=== PATIENT | female | born 1945 | race Caucasian/White ===

== ENCOUNTER 2016-06-15 16:56 | Emergency (ER) | payer MEDICARE ==
[2016-06-15 17:16] VITALS: RESP 18
[2016-06-15] MEDS ORDERED: ceFAZolin 1,000 MG VIAL IM STA (17:33)
[2016-06-15] MEDS ORDERED: DIPH,PERTUS(ACELL)TETVAC-LF 0.5 ML VIAL IM ONE (17:33)
--- NOTE | 2016-06-15 18:00 | XR ---
EXAMINATION TYPE: XR finger LT DATE OF EXAM: 06/15/2016 5:51 PM COMPARISON: NONE HISTORY: Trauma. Bit by dog. TECHNIQUE: 3 views FINDINGS: There is amputation deformity of the midshaft of the distal phalanx of the ring finger left hand. There is no dislocation. IMPRESSION: Amputation deformity of the ring finger at the level of mid shaft of the distal phalanx.
--- NOTE | 2016-06-15 19:03 | ED ---
General Adult HPI - General Chief complaint: Extremity Injury, Upper Stated complaint: Dog Bite Time Seen by Provider: 06/15/16 17:21 Source: patient, RN notes reviewed Mode of arrival: ambulatory Limitations: no limitations - History of Present Illness Initial comments: Patient is a 71-year-old female who presents emergency room today with chief complaint of an injury to the left ring finger. Patient does admit that she accidentally backed over her dog. She states she was trapped underneath the car. She states she is trying to get them out when he did this not better catching her left ring finger causing amputation. Patient states unsure of her tetanus status. She denies any other complaints here in the emergency room. Patient denies any recent fever, chills, shortness of breath, chest pain, back pain, abdominal pain, nausea or vomiting, numbness or tingling, dysuria or hematuria, constipation or diarrhea, headaches or visual changes, or any other complaints. - Related Data Home Medications Medication Instructions Recorded Confirmed Montelukast [Singulair] 10 mg PO HS 09/27/13 06/15/16 Aspirin 81 mg PO DAILY 09/28/13 06/15/16 Cetirizine HCl [Zyrtec] 10 mg PO DAILY 09/28/13 06/15/16 Fluticasone/Salmeterol [Advair 1 puff INHALATION RT-BID 09/28/13 06/15/16 500-50 Diskus] Albuterol Inhaler [Ventolin Hfa 1 - 2 puff INHALATION RT-Q6H PRN 06/15/16 Inhaler] Calcium Carbonate [Tums] 500 mg PO TID PRN 06/15/16 06/15/16 Calcium/Magnesium/Zinc 1 tab PO DAILY 06/15/16 06/15/16 [Hkoxnvx-Rtfxctfrc-Guoh Tablet] Cholecalciferol [Vitamin D3] 1,000 unit PO DAILY 06/15/16 06/15/16 Vit C/E/Zn/Coppr/Lutein/Zeaxan 1 tab PO BID 06/15/16 06/15/16 [Preservision Areds 2 Softgel] Previous Rx's Medication Instructions Recorded Amoxicillin/Potassium Clav 1 each PO Q12HR #20 tab 06/15/16 [Augmentin 875-125 Tablet] Allergies Allergy/AdvReac Type Severity Reaction Status Date / Time ciprofloxacin [From Cipro] AdvReac Nausea Verified 06/15/16 18:42 ciprofloxacin HCl AdvReac Nausea Verified 06/15/16 18:42 [From Cipro] Review of Systems ROS Statement: Those systems with pertinent positive or pertinent negative responses have been documented in the HPI. ROS Other: All systems not noted in ROS Statement are negative. Past Medical History Past Medical History: Asthma, Cancer Additional Past Medical History / Comment(s): hx rt breast cancer History of Any Multi-Drug Resistant Organisms: None Reported Past Surgical History: Breast Surgery Additional Past Surgical History / Comment(s): Rt mastectomy. colonoscopy Past Anesthesia/Blood Transfusion Reactions: Previous Problems w/ Anesthesia Additional Past Anesthesia/Blood Transfusion Reaction / Comment(s): orthostatic HTN after last colonoscopy Past Psychological History: No Psychological Hx Reported Smoking Status: Never smoker Past Alcohol Use History: Rare Past Drug Use History: None Reported General Exam - General Exam Comments Initial Comments: General: The patient is awake and alert, in no distress, and does not appear acutely ill. Neck: The neck is supple, there is no tenderness or JVD. Cardiovascular: There is a regular rate and rhythm. No murmur, rub or gallop is appreciated. Respiratory: Lungs are clear to auscultation, respirations are non-labored, breath sounds are equal. No wheezes, stridor, rales, or rhonchi. Musculoskeletal: Patient does have distal tip amputation of the left ring finger. No active bleeding. Sensation is intact pulses equal bilaterally 2+. Full range of motion. Strength 5/5. Neurological: A&O x 3. CN II-XII intact, There are no obvious motor or sensory deficits. Coordination appears grossly intact. Speech is normal. Skin: Skin is warm and dry and no rashes or lesions are noted. Psychiatric: Normal mood and affect. Limitations: no limitations Course Vital Signs 06/15/16 17:11 Temperature 98.0 F Pulse Rate 89 Respiratory 18 Rate Blood Pressure 155/86 O2 Sat by Pulse 98 Oximetry Procedures - Procedures Initial comment: Patient's left ring finger was anesthetized locally at the head of the metacarpals with 1% lidocaine. Area was heavily irrigated under pressure with normal saline. Nonstick sterile dressing placed over top with tube gauze. Medical Decision Making - Medical Decision Making X-ray reviewed and does show distal tip amputation of the midshaft of the distal phalanx of the fourth digit of the left hand. Case was discussed and seen by attending physician who saw patient at bedside and discussed up with orthopedics correspondence dictator Dr. Mccord who recommends irrigation with a nonstick dressing and following up in the office tomorrow morning. Patient was heavily irrigated here in emergency room. Did have tetanus updated and shot of antibiotics will be discharged home on Augmentin. Disposition Clinical Impression: Fingertip amputation Disposition: HOME SELF-CARE Condition: Good Instructions: Finger Amputation (ED) Additional Instructions: Please follow-up with orthopedics tomorrow morning as discussed. Please use antibiotics as prescribed. Prescriptions: Amoxicillin/Potassium Clav [Augmentin 875-125 Tablet] 1 each PO Q12HR #20 tab Referrals: Silvia Dennis MD [Primary Care Provider] - 1-2 days Mayur Mccord MD [STAFF PHYSICIAN] - 1-2 days Time of Disposition: 19:02
[2016-06-15 19:16] VITALS: BP 151/85; PULSE 78; TEMP 98.1
== END 2016-06-15 19:13 | disposition home or self-care (01) ==
LOC: EC 16:56
DX: S68.125A Partial traumatic metacarpophalangeal amputation of left ring finger, initial encounter (principal); W54.0XXA Bitten by dog, initial encounter; J45.909 Unspecified asthma, uncomplicated; Z90.11 Acquired absence of right breast and nipple; Z85.3 Personal history of malignant neoplasm of breast; Z79.82 Long term (current) use of aspirin; Z79.51 Long term (current) use of inhaled steroids; Z79.899 Other long term (current) drug therapy; Z23 Encounter for immunization; Z88.1 Allergy status to other antibiotic agents
CPT/HCPCS: 90471; 99284; 73140; 90715; 96372; J0690

== ENCOUNTER → 2018-03-03 | Outpatient (CLI) | payer MEDICARE ==
--- NOTE | 2018-03-04 08:10 | MM ---
Reason for exam: additional evaluation requested from prior study. Last mammogram was performed 1 year ago. History: Patient is postmenopausal, has history of breast cancer at age 57, has history of high-risk lesion on a previous biopsy at age 53, and is nulliparous. Family history of premenopausal breast cancer in mother and breast cancer in maternal aunt. Retro-pectoral silicone gel implant in the right breast, November 2003. Reduction of the left breast, November 2003. Mastectomy of the right breast, 2002. Benign stereotactic core biopsy of the left breast, May 27, 2001. Benign excisional biopsy of the right breast, April 12, 1997. Core biopsy of the left breast. Lumpectomy of the right breast. Chemotherapy. Took tamoxifen for 5 years beginning at age 57. Physical Findings: Nurse did not find any significant physical abnormalities on exam. MG 3D Diag Mammo W/Cad LT CC and MLO view(s) were taken of the left breast. Prior study comparison: March 08, 2017, left breast MG 3d diag mammo w/cad LT. March 04, 2016, left breast MG 3d diag mammo w/cad LT. The breast tissue is heterogeneously dense. This may lower the sensitivity of mammography. Asymmetric density far medial and posterior is more defined, but disperses on additional views. Precautionary 6 month follow up recommended. These results were verbally communicated with the patient and result sheet given to the patient on 03/03/18. ASSESSMENT: Probably benign, BI-RAD 3 RECOMMENDATION: Follow-up diagnostic mammogram of the left breast in 6 months.
== END | disposition home or self-care (01) ==
LOC: RADMAMWWP 13:34
PROVIDERS: ATTEND Obstetrics & Gynecology
DX: Z08 Encounter for follow-up examination after completed treatment for malignant neoplasm (principal); Z85.3 Personal history of malignant neoplasm of breast
CPT/HCPCS: 77065; G0279; 77061

== ENCOUNTER → 2018-09-02 | Outpatient (CLI) | payer MEDICARE ==
--- NOTE | 2018-09-02 14:22 | MM ---
Reason for exam: follow-up at short interval from prior study. Last mammogram was performed 6 months ago. History: Patient is postmenopausal, has history of breast cancer at age 57, has history of high-risk lesion on a previous biopsy at age 53, and is nulliparous. Family history of premenopausal breast cancer in mother and breast cancer in maternal aunt. Retro-pectoral silicone gel implant in the right breast, November 2003. Reduction of the left breast, November 2003. Mastectomy of the right breast, 2002. Benign stereotactic core biopsy of the left breast, May 27, 2001. Benign excisional biopsy of the right breast, April 12, 1997. Core biopsy of the left breast. Lumpectomy of the right breast. Chemotherapy. Took tamoxifen for 5 years beginning at age 57. Physical Findings: Nurse did not find any significant physical abnormalities on exam. MG 3D Diag Mammo W/Cad LT CC and MLO view(s) were taken of the left breast. Prior study comparison: March 03, 2018, left breast MG 3d diag mammo w/cad LT. March 08, 2017, left breast MG 3d diag mammo w/cad LT. The breast tissue is heterogeneously dense. This may lower the sensitivity of mammography. Benign appearing calcifications in the left breast. No suspicious abnormality. These results were verbally communicated with the patient and result sheet given to the patient on 09/02/18. ASSESSMENT: Benign, BI-RAD 2 RECOMMENDATION: Follow-up diagnostic mammogram of the left breast in 6 months. Back on schedule for February 2019. (annual, patient typically has screening)
--- NOTE | 2018-09-02 15:37 | BD ---
EXAMINATION TYPE: Axial Bone Density DATE OF EXAM: 09/02/2018 COMPARISON: 03.04.2016 CLINICAL HISTORY: 73 YR OLD FEMALE.....ICD-10 CODE: M89.9 DISORDER OF BONE, M85.9 OSTEOPOROSIS Height: 62.2 Weight: 108 FRAX RISK QUESTIONS: Family History (Parent hip fracture): YES Glucocorticoids (More than 3mos): YES (Ex: prednisone, prednisolone, methylprednisolone, dexamethasone, and hydrocortisone). RISK FACTORS HISTORY OF: Family History of Osteoporosis: YES, PATERNAL SIDE, WITH BROKEN HIPS Postmenopausal woman: YES, AT 52 YRS OLD MEDICATIONS: Prednisone or other steroids: ADVAIR, AND SINGULAIR DAILY, ALBUTEROL INHALER Osteoporosis Medications: IN PAST ONLY...NONE NOW Additional Medications: HX OF CHEMO, REFLUX MEDS , VIT D AND CALCIUM, Additional History: HYPERCALCEMIA, RT BREAST CANCER, EXAM MEASUREMENTS: Bone mineral densitometry was performed using the [employer] System. Bone mineral density as measured about the Lumbar spine is: ----- L1-L4(G/cm2): 1.270 T Score Values are as follows: ----- L1: 0.7 ----- L2: 0.2 ----- L3: 1.0 ----- L4: 0.9 ----- L1-L4: 0.8 Bone mineral density has: Decreased -0.3% since study of: 03.04.2016 Bone mineral density about the R hip (g/cm2): 0.886 Bone mineral density about the L hip (g/cm2): 0.851 T Score values are as follows: -----R Neck: -1.4 -----L Neck: -1.6 -----R Total: -1.0 -----L Total: -1.2 Bone mineral density has: Decreased -2.0% since study of: 03.04.2016 FRAX%s: THERE IS A 22.3% CHANCE FOR A MAJOR OSTEOPOROTIC FX AND A 7.5% FOR HIP....PROBABILITY FOR FX IN 10 YRS TIME IMPRESSION: Osteopenia (T Score between -2.5 and -1). There is slightly increased risk of fracture and the patient may be considered for treatment. Re-Screen 2-5 years. NOTE: T-SCORE=SD OF THE YOUNG ADULT MEAN.
== END | disposition home or self-care (01) ==
LOC: RADMAMWWP 12:51
PROVIDERS: ATTEND Obstetrics & Gynecology
DX: Z08 Encounter for follow-up examination after completed treatment for malignant neoplasm (principal); M89.9 Disorder of bone, unspecified; M85.80 Other specified disorders of bone density and structure, unspecified site; Z85.3 Personal history of malignant neoplasm of breast; Z98.82 Breast implant status
CPT/HCPCS: 77080; 77065; G0279; 77061

== ENCOUNTER → 2019-03-13 | Outpatient (CLI) | payer MEDICARE ==
--- NOTE | 2019-03-13 11:52 | MM ---
Reason for exam: follow-up at short interval from prior study. Last mammogram was performed 6 months ago. History: Patient is postmenopausal, has history of breast cancer at age 57, has history of high-risk lesion on a previous biopsy at age 53, and is nulliparous. Family history of premenopausal breast cancer in mother and breast cancer in maternal aunt. Retro-pectoral silicone gel implant in the right breast, November 2003. Reduction of the left breast, November 2003. Mastectomy of the right breast, 2002. Benign stereotactic core biopsy of the left breast, May 27, 2001. Benign excisional biopsy of the right breast, April 12, 1997. Core biopsy of the left breast. Lumpectomy of the right breast. Chemotherapy. Took tamoxifen for 5 years beginning at age 57. Physical Findings: Nurse Summary: BB's placed at 3 o'clock and 6 o'clock in the right breast (nurse ms). MG 3D Diag Mammo W/Cad LT CC, MLO, XCCL, and ML view(s) were taken of the left breast. Prior study comparison: September 02, 2018, left breast MG 3d diag mammo w/cad LT. March 03, 2018, left breast MG 3d diag mammo w/cad LT. The breast tissue is heterogeneously dense. This may lower the sensitivity of mammography. Benign appearing calcifications in the left breast. Upper inner quadrant 1.1cm posterior mass. Ultrasound will be performed. These results were verbally communicated with the patient and result sheet given to the patient on 03/13/19. ASSESSMENT: Incomplete: need additional imaging evaluation, BI-RAD 0 RECOMMENDATION: Ultrasound of the left breast. superior palpable and mass
--- NOTE | 2019-03-13 11:53 | USB ---
Reason for exam: additional evaluation requested from abnormal screening. History: Patient is postmenopausal, has history of breast cancer at age 57, has history of high-risk lesion on a previous biopsy at age 53, and is nulliparous. Family history of premenopausal breast cancer in mother and breast cancer in maternal aunt. Retro-pectoral silicone gel implant in the right breast, November 2003. Reduction of the left breast, November 2003. Mastectomy of the right breast, 2002. Benign stereotactic core biopsy of the left breast, May 27, 2001. Benign excisional biopsy of the right breast, April 12, 1997. Core biopsy of the left breast. Lumpectomy of the right breast. Chemotherapy. Took tamoxifen for 5 years beginning at age 57. US Breast Limited LT Left limited breast ultrasound including focal area of concern, retroareolar and axilla demonstrates a 9 x 5 x 12mm oval, cystic lesion at 9 o'clock, correlates with mammogram. These results were verbally communicated with the patient and result sheet given to the patient on 03/13/19. ASSESSMENT: Benign, BI-RAD 2 RECOMMENDATION: Routine screening mammogram of the left breast in 1 year.
== END | disposition home or self-care (01) ==
LOC: RADMAMWWP 10:06
PROVIDERS: ATTEND Obstetrics & Gynecology
DX: R92.8 Other abnormal and inconclusive findings on diagnostic imaging of breast (principal); Z85.3 Personal history of malignant neoplasm of breast
CPT/HCPCS: 77065; 76642; G0279; 77061

== ENCOUNTER → 2020-04-26 | Outpatient (CLI) | payer MEDICARE ==
--- NOTE | 2020-04-26 14:02 | MM ---
Reason for exam: additional evaluation requested from prior study. Last mammogram was performed 1 year and 1 month ago. History: Patient is postmenopausal, has history of breast cancer at age 57, has history of high-risk lesion on a previous biopsy at age 53, and is nulliparous. Family history of premenopausal breast cancer in mother and breast cancer in maternal aunt. Retro-pectoral silicone gel implant in the right breast, November 2003. Reduction of the left breast, November 2003. Mastectomy of the right breast, 2002. Benign stereotactic core biopsy of the left breast, May 27, 2001. Benign excisional biopsy of the right breast, April 12, 1997. Core biopsy of the left breast. Lumpectomy of the right breast. Chemotherapy. Took tamoxifen for 5 years beginning at age 57. Physical Findings: Nurse did not find any significant physical abnormalities on exam. MG 3D Diag Mammo W/Cad LT CC and MLO view(s) were taken of the left breast. Prior study comparison: March 13, 2019, left breast MG 3d diag mammo w/cad LT. September 02, 2018, left breast MG 3d diag mammo w/cad LT. The breast tissue is heterogeneously dense. This may lower the sensitivity of mammography. Benign calcifications. There is chronic nodularity bilaterally. No significant new findings when compared with previous films. These results were verbally communicated with the patient and result sheet given to the patient on 04/26/20. ASSESSMENT: Benign, BI-RAD 2 RECOMMENDATION: Follow-up diagnostic mammogram of the left breast in 1 year.
== END | disposition home or self-care (01) ==
LOC: RADMAMWWP 12:27
PROVIDERS: ATTEND Internal Medicine Hematology & Oncology
DX: Z08 Encounter for follow-up examination after completed treatment for malignant neoplasm (principal); Z85.3 Personal history of malignant neoplasm of breast
CPT/HCPCS: 77065; G0279; 77061

== ENCOUNTER 2021-02-25 10:19 | Day surgery (SDC) | payer MEDICARE ==
[2021-02-18 15:50] VITALS: BMI 19.5
[~2021-02-25 10:19] MED LIST: LACTATED RINGERS 1,000 ML IV SCH
[2021-02-25 10:37] VITALS: TEMP 98.3
[2021-02-25] MEDS ORDERED: LIDOCAINE 1% (10MG/ML) FOR IV START INTRADERMA ONE (10:50)
[2021-02-25] MEDS ORDERED: PROPOFOL 10 MG/ML 20 ML VIAL IV ONE (11:37)
--- NOTE | 2021-02-25 11:49 | P.GSHP ---
History of Present Illness H&P Date: 02/25/21 Chief Complaint: Colon cancer screening Patient here today for colonoscopy. Last colonoscopy years ago. Patient states she thinks she had a polyp with her first colonoscopy many years ago. No family history of colon cancer. No bowel complaints. 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, Past Anesthesia/Blood Transfusion Reactions: Previous Problems w/ Anesthesia Additional Past Anesthesia/Blood Transfusion Reaction / Comment(s): orthostatic HTN after last colonoscopy.lightheaded and low blood sugar Smoking Status: Never smoker - Past Family History Mother Family Medical History: Cancer Brother(s) Family Medical History: Cancer Medications and Allergies Home Medications Medication Instructions Recorded Confirmed Type Montelukast [Singulair] 10 mg PO QAM 09/27/13 02/18/21 History Cetirizine HCl [Zyrtec] 10 mg PO HS 09/28/13 02/18/21 History Fluticasone/Salmeterol [Advair 1 puff INHALATION RT-BID 09/28/13 02/18/21 History 500-50 Diskus] Albuterol Inhaler (Mhu) [Ventolin 1 - 2 puff INHALATION RT-Q6H PRN 06/15/16 02/18/21 History Hfa Inhaler] Cholecalciferol [Vitamin D3] 5,000 unit PO DAILY 06/15/16 02/18/21 History Vit C/E/Zn/Coppr/Lutein/Zeaxan 1 tab PO BID 06/15/16 02/18/21 History [Preservision Areds 2 Softgel] Multivitamins, Thera [Multivitamin 1 tab PO DAILY 02/18/21 02/18/21 History (formulary)] Allergies Allergy/AdvReac Type Severity Reaction Status Date / Time ciprofloxacin [From Cipro] AdvReac Nausea Verified 02/25/21 10:44 ciprofloxacin HCl AdvReac Nausea Verified 02/25/21 10:44 [From Cipro] Surgical - Exam Vital Signs Temp Pulse Resp BP Pulse Ox 98.3 F 87 16 152/87 99 02/25/21 10:36 02/25/21 10:36 02/25/21 10:36 02/25/21 10:36 02/25/21 10:36 Physical exam: General: Well-developed, well-nourished HEENT: Normocephalic, sclerae nonicteric Abdomen: Nontender, nondistended Extremities: No edema Neuro: Alert and oriented Assessment and Plan (1) Colon cancer screening Narrative/Plan: Will proceed with colonoscopy at this time Current Visit: Yes Status: Acute Code(s): Z12.11 - ENCOUNTER FOR SCREENING FOR MALIGNANT NEOPLASM OF COLON SNOMED Code(s): 695226108
--- NOTE | 2021-02-25 12:05 | P.PCN ---
Date of Procedure: 02/25/21 Procedure(s) Performed: PREOPERATIVE DIAGNOSIS: Colon cancer screening POSTOPERATIVE DIAGNOSIS: Cecal polyp, mild diverticulosis PROCEDURE: Colonoscopy with snare polypectomy ANESTHESIA: MAC SURGEON: Ephraim Yang M.D. SPECIMENS: Cecal polyp ENDOSCOPIC PROCEDURE: The patient was placed on the endoscopy table in the left decubitus position. The Olympus colonoscope was inserted into the anus and passed under direct visualization to the base of the cecum. The appendiceal orifice was visualized. From that point the scope was slowly withdrawn inspecting all surfaces carefully. The patient had a small polyp at the cecum. This was removed using the snare with cautery technique. The remainder of the ascending transverse descending sigmoid and rectum appeared normal. There was mild scattered diverticulosis. Digital rectal examination was normal. The patient was taken to the recovery room in stable condition per anesthesia guidelines. RECOMMENDATIONS: Await biopsy results. Anticipate follow-up colonoscopy 5 years.
[2021-02-25 12:37] VITALS: BP 162/95; PULSE 75; RESP 15
== END 2021-02-25 12:40 | disposition home or self-care (01) ==
LOC: ORWHC2ENDO 10:19
PROVIDERS: ATTEND Surgery
DX: Z12.11 Encounter for screening for malignant neoplasm of colon (principal); K63.5 Polyp of colon; K57.90 Diverticulosis of intestine, part unspecified, without perforation or abscess without bleeding
CPT/HCPCS: 45385; J2704; 88305

== ENCOUNTER 2021-12-17 08:05 | Emergency (ER) | payer MEDICARE ==
[2021-12-17] MEDS ORDERED: SODIUM CHLORIDE 0.9% 1,000 ML IV STA ×2 (08:19)
[2021-12-17] MEDS ORDERED: MECLIZINE 12.5 MG TAB PO STA (08:19)
--- NOTE | 2021-12-17 08:28 | ED ---
Dizziness HPI - General Chief Complaint: Dizziness Stated Complaint: dizziness Time Seen by Provider: 12/17/21 08:05 Source: patient, EMS, RN notes reviewed Mode of arrival: EMS Limitations: no limitations - History of Present Illness Initial Comments: 76-year-old female history of breast cancer status post mastectomy also history of vertigo who states she had the onset several days ago some difficulty with hearing also complained of profound dizziness she's had multiple episodes intermittently dizziness. It comes in waves lasting 20 minutes or so. Some nausea she was brought in by EMS was given IV as well as some Zofran. Still somewhat nauseated. She does get dizzy with head movement. No focal weakness no difficulty with vision she does state her hearing has improved since it started to 3 days ago. She's never had hearing problems with dizziness before. MD Complaint: dizziness - Related Data Home Medications Medication Instructions Recorded Confirmed Montelukast [Singulair] 10 mg PO DAILY 09/27/13 12/17/21 Cetirizine HCl [Zyrtec] 10 mg PO HS 09/28/13 12/17/21 Vit C/E/Zn/Coppr/Lutein/Zeaxan 1 tab PO BID 06/15/16 12/17/21 [Preservision Areds 2 Softgel] Azithromycin [Zithromax Z Pack] See Taper PO DIRECTED 12/17/21 12/17/21 Cholecalciferol [Vitamin D3 (125 125 mcg PO DAILY 12/17/21 12/17/21 Mcg = 5000 Iu)] Fluticasone Propion/Salmeterol 1 puff INHALATION RT-BID 12/17/21 12/17/21 [Wixela 500-50 Inhub] Latanoprost/Pf [Latanoprost 0.005% 1 drop BOTH EYES HS 12/17/21 12/17/21 Eye Drop] Multivit-Min/FA/Lycopen/Lutein 1 tab PO DAILY 12/17/21 12/17/21 [Centrum Silver Tablet] Previous Rx's Medication Instructions Recorded Meclizine [Antivert] 25 mg PO TID #20 tab 12/17/21 Allergies Allergy/AdvReac Type Severity Reaction Status Date / Time ciprofloxacin [From Cipro] AdvReac Nausea Verified 12/17/21 11:25 ciprofloxacin HCl AdvReac Nausea Verified 12/17/21 11:25 [From Cipro] Review of Systems ROS Statement: Those systems with pertinent positive or pertinent negative responses have been documented in the HPI. ROS Other: All systems not noted in ROS Statement are negative. Past Medical History Past Medical History: Asthma, Cancer Additional Past Medical History / Comment(s): hx rt breast cancer History of Any Multi-Drug Resistant Organisms: None Reported Past Surgical History: Breast Surgery Additional Past Surgical History / Comment(s): Rt mastectomy. colonoscopy Past Anesthesia/Blood Transfusion Reactions: Previous Problems w/ Anesthesia Additional Past Anesthesia/Blood Transfusion Reaction / Comment(s): orthostatic HTN after last colonoscopy Past Psychological History: No Psychological Hx Reported Past Alcohol Use History: Rare General Exam - General Exam Comments Initial Comments: This is a well-developed well-nourished awake alert oriented 4 female Limitations: no limitations General appearance: anxious Head exam: Present: atraumatic, normocephalic, normal inspection Eye exam: Present: normal appearance, PERRL, EOMI. Absent: scleral icterus, con junctival injection, periorbital swelling ENT exam: Present: mucous membranes dry Neck exam: Present: normal inspection, full ROM, other (No stridor JVD or bruits) Respiratory exam: Present: normal lung sounds bilaterally. Absent: respiratory distress, wheezes, rales, rhonchi, stridor Cardiovascular Exam: Present: regular rate, normal rhythm, normal heart sounds. Absent: systolic murmur, diastolic murmur, rubs, gallop, clicks GI/Abdominal exam: Present: soft. Absent: tenderness, bruit, pulsatile mass Extremities exam: Present: normal inspection, full ROM, normal capillary refill. Absent: tenderness, pedal edema, joint swelling, calf tenderness Back exam: Present: normal inspection Neurological exam: Present: alert, oriented X3, CN II-XII intact Psychiatric exam: Present: normal affect, normal mood Skin exam: Present: warm, dry, intact, normal color. Absent: rash Course Vital Signs 12/17/21 12/17/21 12/17/21 08:06 08:53 09:30 Temperature 97.5 F L Pulse Rate 62 63 Respiratory 16 16 Rate Blood Pressure 154/90 163/93 O2 Sat by Pulse 98 97 Oximetry 12/17/21 10:19 Temperature Pulse Rate 66 Respiratory 16 Rate Blood Pressure 137/83 O2 Sat by Pulse 99 Oximetry EKG Findings - EKG Results: EKG: interpreted by CHARLEY, sinus rhythm (Sinus bradycardia rate 59 ID interval 17 3 QRS duration 110 QT since QTC 422/421 possible left atrial enlargement pulmonary disease pattern incomplete right bundle-branch block left anterior fascicular block noted nonspecific ST configuration) Medical Decision Making - Medical Decision Making Patient is feeling much improved we did discuss the findings the initial blood work was erroneous repeat showed no acute changes patient is clinically somewhat dehydrated. Her vertigo/dizziness has resolved. Patient does states she is currently being treated for a sinus infection she is starting Zithromax today. We discharged home on the current medication at the addition to Antivert. She also was encouraged to increase oral fluids. - Lab Data Result diagrams: 12/17/21 10:07 12/17/21 10:07 Lab Results 12/17/21 12/17/21 12/17/21 Range/Units 08:17 08:17 08:17 WBC (3.8-10.6) k/uL RBC (3.80-5.40) m/uL Hgb (11.4-16.0) gm/dL Hct (34.0-46.0) % MCV (80.0-100.0) fL MCH (25.0-35.0) pg MCHC (31.0-37.0) g/dL RDW (11.5-15.5) % Plt Count (150-450) k/uL MPV Neutrophils % % Lymphocytes % % Monocytes % % Eosinophils % % Basophils % % Neutrophils # (1.3-7.7) k/uL Lymphocytes # (1.0-4.8) k/uL Monocytes # (0-1.0) k/uL Eosinophils # (0-0.7) k/uL Basophils # [employer] Sodium (137-145) mmol/L Potassium (3.5-5.1) mmol/L Chloride (98-107) mmol/L Carbon Dioxide (22-30) mmol/L Anion Gap mmol/L BUN (7-17) mg/dL Creatinine (0.52-1.04) mg/dL Est GFR (CKD-EPI)AfAm >90 (>60 ml/min/1.73 sqM) Est GFR (CKD-EPI)NonAf >90 (>60 ml/min/1.73 sqM) Glucose (74-99) mg/dL Calcium (8.4-10.2) mg/dL Magnesium (1.6-2.3) mg/dL Total Bilirubin (0.2-1.3) mg/dL AST (14-36) U/L ALT (4-34) U/L Alkaline Phosphatase (38-126) U/L Creatine Kinase 164 H (30-135) U/L Troponin I (0.000-0.034) ng/mL Total Protein (6.3-8.2) g/dL Albumin (3.5-5.0) g/dL TSH 1.880 (0.465-4.680) mIU/L Urine Color Colorless Urine Appearance Cloudy H (Clear) Urine pH 7.5 (5.0-8.0) Ur Specific [place] 1.010 (1.001-1.035) Urine Protein Negative (Negative) Urine Glucose (UA) 1+ H (Negative) Urine Ketones Negative (Negative) Urine Blood Negative (Negative) Urine Nitrite Negative (Negative) Urine Bilirubin Negative (Negative) Urine Urobilinogen <2.0 (<2.0) mg/dL Ur Leukocyte Esterase Negative (Negative) Urine RBC 1 (0-5) /hpf Urine WBC 1 (0-5) /hpf Amorphous Sediment Moderate H (None) /hpf Urine Mucus Rare H (None) /hpf Stool Occult Blood (Negative) Coronavirus (PCR) (Not Detectd) Blood Type Blood Type Confirm Blood Type Recheck Bld Type Recheck Status Antibody Screen Spec Expiration Date 12/17/21 12/17/21 12/17/21 Range/Units 08:17 08:17 08:17 WBC (3.8-10.6) k/uL RBC (3.80-5.40) m/uL Hgb (11.4-16.0) gm/dL Hct (34.0-46.0) % MCV (80.0-100.0) fL MCH (25.0-35.0) pg MCHC (31.0-37.0) g/dL RDW (11.5-15.5) % Plt Count (150-450) k/uL MPV Neutrophils % % Lymphocytes % % Monocytes % % Eosinophils % % Basophils % % Neutrophils # (1.3-7.7) k/uL Lymphocytes # (1.0-4.8) k/uL Monocytes # (0-1.0) k/uL Eosinophils # (0-0.7) k/uL Basophils # Sodium (137-145) mmol/L Potassium (3.5-5.1) mmol/L Chloride (98-107) mmol/L Carbon Dioxide (22-30) mmol/L Anion Gap mmol/L BUN (7-17) mg/dL Creatinine (0.52-1.04) mg/dL Est GFR (CKD-EPI)AfAm (>60 ml/min/1.73 sqM) Est GFR (CKD-EPI)NonAf (>60 ml/min/1.73 sqM) Glucose (74-99) mg/dL Calcium (8.4-10.2) mg/dL Magnesium (1.6-2.3) mg/dL Total Bilirubin (0.2-1.3) mg/dL AST (14-36) U/L ALT (4-34) U/L Alkaline Phosphatase (38-126) U/L Creatine Kinase (30-135) U/L Troponin I <0.012 (0.000-0.034) ng/mL Total Protein (6.3-8.2) g/dL Albumin (3.5-5.0) g/dL TSH (0.465-4.680) mIU/L Urine Color Urine Appearance (Clear) Urine pH (5.0-8.0) Ur Specific [place] (1.001-1.035) Urine Protein (Negative) Urine Glucose (UA) (Negative) Urine Ketones (Negative) Urine Blood (Negative) Urine Nitrite (Negative) Urine Bilirubin (Negative) Urine Urobilinogen (<2.0) mg/dL Ur Leukocyte Esterase (Negative) Urine RBC (0-5) /hpf Urine WBC (0-5) /hpf Amorphous Sediment (None) /hpf Urine Mucus (None) /hpf Stool Occult Blood Negative (Negative) Coronavirus (PCR) Not Detected (Not Detectd) Blood Type Blood Type Confirm Blood Type Recheck Bld Type Recheck Status Antibody Screen Spec Expiration Date 12/17/21 12/17/21 12/17/21 Range/Units 10:07 10:07 10:55 WBC 14.2 H (3.8-10.6) k/uL RBC 4.23 (3.80-5.40) m/uL Hgb 13.1 (11.4-16.0) gm/dL Hct 40.3 (34.0-46.0) % MCV 95.2 (80.0-100.0) fL MCH 31.0 (25.0-35.0) pg MCHC 32.6 (31.0-37.0) g/dL RDW 13.3 (11.5-15.5) % Plt Count 301 (150-450) k/uL MPV 8.3 Neutrophils % 80 % Lymphocytes % 11 % Monocytes % 7 % Eosinophils % 0 % Basophils % 0 % Neutrophils # 11.3 H (1.3-7.7) k/uL Lymphocytes # 1.5 (1.0-4.8) k/uL Monocytes # 1.0 (0-1.0) k/uL Eosinophils # 0.0 (0-0.7) k/uL Basophils # 0.0 Sodium 138 (137-145) mmol/L Potassium 4.1 (3.5-5.1) mmol/L Chloride 103 (98-107) mmol/L Carbon Dioxide 26 (22-30) mmol/L Anion Gap 9 mmol/L BUN 16 (7-17) mg/dL Creatinine 0.44 L (0.52-1.04) mg/dL Est GFR (CKD-EPI)AfAm >90 (>60 ml/min/1.73 sqM) Est GFR (CKD-EPI)NonAf >90 (>60 ml/min/1.73 sqM) Glucose 101 H (74-99) mg/dL Calcium 9.7 (8.4-10.2) mg/dL Magnesium (1.6-2.3) mg/dL Total Bilirubin 0.3 (0.2-1.3) mg/dL AST 40 H (14-36) U/L ALT 43 H (4-34) U/L Alkaline Phosphatase 91 (38-126) U/L Creatine Kinase 252 H (30-135) U/L Troponin I (0.000-0.034) ng/mL Total Protein 6.4 (6.3-8.2) g/dL Albumin 3.9 (3.5-5.0) g/dL TSH 3.040 (0.465-4.680) mIU/L Urine Color Urine Appearance (Clear) Urine pH (5.0-8.0) Ur Specific [place] (1.001-1.035) Urine Protein (Negative) Urine Glucose (UA) (Negative) Urine Ketones (Negative) Urine Blood (Negative) Urine Nitrite (Negative) Urine Bilirubin (Negative) Urine Urobilinogen (<2.0) mg/dL Ur Leukocyte Esterase (Negative) Urine RBC (0-5) /hpf Urine WBC (0-5) /hpf Amorphous Sediment (None) /hpf Urine Mucus (None) /hpf Stool Occult Blood (Negative) Coronavirus (PCR) (Not Detectd) Blood Type Blood Type Confirm O Positive Blood Type Recheck Bld Type Recheck Status Antibody Screen Spec Expiration Date 12/17/21 12/17/21 Range/Units 11:05 12:00 WBC (3.8-10.6) k/uL RBC (3.80-5.40) m/uL Hgb (11.4-16.0) gm/dL Hct (34.0-46.0) % MCV (80.0-100.0) fL MCH (25.0-35.0) pg MCHC (31.0-37.0) g/dL RDW (11.5-15.5) % Plt Count (150-450) k/uL MPV Neutrophils % % Lymphocytes % % Monocytes % % Eosinophils % % Basophils % % Neutrophils # (1.3-7.7) k/uL Lymphocytes # (1.0-4.8) k/uL Monocytes # (0-1.0) k/uL Eosinophils # (0-0.7) k/uL Basophils # Sodium (137-145) mmol/L Potassium (3.5-5.1) mmol/L Chloride (98-107) mmol/L Carbon Dioxide (22-30) mmol/L Anion Gap mmol/L BUN (7-17) mg/dL Creatinine (0.52-1.04) mg/dL Est GFR (CKD-EPI)AfAm (>60 ml/min/1.73 sqM) Est GFR (CKD-EPI)NonAf (>60 ml/min/1.73 sqM) Glucose (74-99) mg/dL Calcium (8.4-10.2) mg/dL Magnesium 1.8 (1.6-2.3) mg/dL Total Bilirubin (0.2-1.3) mg/dL AST (14-36) U/L ALT (4-34) U/L Alkaline Phosphatase (38-126) U/L Creatine Kinase (30-135) U/L Troponin I (0.000-0.034) ng/mL Total Protein (6.3-8.2) g/dL Albumin (3.5-5.0) g/dL TSH (0.465-4.680) mIU/L Urine Color Urine Appearance (Clear) Urine pH (5.0-8.0) Ur Specific [place] (1.001-1.035) Urine Protein (Negative) Urine Glucose (UA) (Negative) Urine Ketones (Negative) Urine Blood (Negative) Urine Nitrite (Negative) Urine Bilirubin (Negative) Urine Urobilinogen (<2.0) mg/dL Ur Leukocyte Esterase (Negative) Urine RBC (0-5) /hpf Urine WBC (0-5) /hpf Amorphous Sediment (None) /hpf Urine Mucus (None) /hpf Stool Occult Blood (Negative) Coronavirus (PCR) (Not Detectd) Blood Type O Positive Blood Type Confirm Blood Type Recheck No Previous Record Bld Type Recheck Status CABO Indicated Antibody Screen NEGATIVE Spec Expiration Date 12/20/20212304 - Radiology Data Radiology results: report reviewed (Imaging reviewed as well as report no acute findings.), image reviewed Disposition Clinical Impression: Benign paroxysmal positional vertigo, Sinusitis Disposition: HOME SELF-CARE Condition: Good Instructions (If sedation given, give patient instructions): Dizziness (ED), Sinusitis (ED), Vertigo (ED) Prescriptions: Meclizine [Antivert] 25 mg PO TID #20 tab Is patient prescribed a controlled substance at d/c from ED?: No Referrals: Silvia Dennis MD [Primary Care Provider] - 1-2 days
[2021-12-17 09:05] LABS: African American GFR (CKD) >90 (>60 ml/min/1.73 sqM); Non-African American GFR(CKD) >90 (>60 ml/min/1.73 sqM)
--- NOTE | 2021-12-17 09:28 | CT ---
EXAMINATION TYPE: CT brain wo con DATE OF EXAM: 12/17/2021 COMPARISON: None HISTORY: Dizziness, nausea and vomiting CT DLP: 107.[address] of the brain was performed. The ventricles, basal cisterns and sulci overlying the cerebral convexities demonstrate mild enlargem ent. There is no evidence for intracranial hemorrhage or sulcal effacement. There is decreased attenuation about the periventricular white matter and deep white matter of both c erebral hemispheres, compatible with chronic small vessel ischemia. Differential diagnosis does inclu de demyelination. No mass effects are seen.No midline shift. Osseous calvarium is intact. If symptoms persist consider MRI. IMPRESSION: 1. Age related atrophic and chronic small vessel ischemic change without acute intracranial process s een at this time.
[2021-12-17] MEDS ORDERED: POTASSIUM CHLORIDE 20 MEQ in WATER FOR INJECTION 1 100ML.BAG IVPB STA (09:30)
[2021-12-17] MEDS ORDERED: MAGNESIUM SULFATE-D5W PMX 1 GM in DEXTROSE/WATER 1 100ML.BAG IVPB SCH (09:30)
[2021-12-17 09:31] VITALS: TEMP 97.5
--- NOTE | 2021-12-17 09:32 | XR ---
EXAMINATION TYPE: XR chest 2V DATE OF EXAM: 12/17/2021 COMPARISON: 05/15/2014 HISTORY: Shortness of breath TECHNIQUE: Frontal and lateral views of the chest are obtained. FINDINGS: Scattered senescent parenchymal changes noted. Hyperinflation compatible with COPD. No evidence for infiltrate. No evidence for atelectasis. Heart size is stable. Mediastinal structures are stable and grossly unremarkable. No evidence for hilar prominence. Degenerative changes dorsal spine. IMPRESSION: 1. No evidence for acute pulmonary disease.
[2021-12-17 10:09] LABS: Amorphous Sediment,Urine Moderate /hpf; Appearance,Urine Cloudy (Clear); Bilirubin,Urine Negative (Negative); Blood,Urine Negative (Negative); Color,Urine Colorless; Glucose,Urine (UA) 1+ (Negative); Ketones,Urine Negative (Negative); Leukocyte Esterase,Urine Negative (Negative); Mucus,Urine Rare /hpf; Nitrite,Urine Negative (Negative); PH, Urine 7.5 (5.0-8.0); Protein,Urine Negative (Negative); RBC,Urine 1 /hpf (0-5); Urobilinogen,Urine <2.0 mg/dL (<2.0); WBC,Urine 1 /hpf (0-5)
[2021-12-17 10:30] LABS: Basophils % (A) 0 %; Eosinophils % (A) 0 %; HCT 40.3 % (34.0-46.0); Lymphocytes # (A) 1.5 k/uL (1.0-4.8); Lymphocytes % (A) 11 %; MCHC 32.6 g/dL (31.0-37.0); MCV 95.2 fL (80.0-100.0); Mean Platelet Volume 8.3; Monocytes % (A) 7 %; Neutrophils # (A) 11.3 k/uL (1.3-7.7); Neutrophils % (A) 80 %; Platelet Count 301 k/uL (150-450); RBC 4.23 m/uL (3.80-5.40); RDW 13.3 % (11.5-15.5); WBC 14.2 k/uL (3.8-10.6)
[2021-12-17 10:31] LABS: ALT 43 U/L (4-34); AST 40 U/L (14-36); African American GFR (CKD) >90 (>60 ml/min/1.73 sqM); Albumin 3.9 g/dL (3.5-5.0); Alkaline Phosphatase 91 U/L (38-126); Anion Gap 9 mmol/L; Blood Urea Nitrogen 16 mg/dL (7-17); Calcium 9.7 mg/dL (8.4-10.2); Carbon Dioxide 26 mmol/L (22-30); Chloride 103 mmol/L (98-107); Glucose 101 mg/dL (74-99); HGB 13.1 gm/dL (11.4-16.0); Non-African American GFR(CKD) >90 (>60 ml/min/1.73 sqM); Potassium 4.1 mmol/L (3.5-5.1); Sodium 138 mmol/L (137-145); Total Bilirubin 0.3 mg/dL (0.2-1.3); Total Protein 6.4 g/dL (6.3-8.2)
[2021-12-17 11:14] LABS: Creatine Kinase 164 U/L (30-135)
[2021-12-17 11:19] LABS: Creatine Kinase 252 U/L (30-135)
[2021-12-17 13:16] VITALS: BP 134/81; PULSE 74; RESP 18
== END 2021-12-17 13:16 | disposition home or self-care (01) ==
LOC: EC 08:05
DX: H81.10 Benign paroxysmal vertigo, unspecified ear (principal); J01.90 Acute sinusitis, unspecified; J45.909 Unspecified asthma, uncomplicated; Z88.1 Allergy status to other antibiotic agents; Z79.899 Other long term (current) drug therapy; Z20.822 Contact with and (suspected) exposure to COVID-19
CPT/HCPCS: 36415; 70450; 71046; 80053; 81001; 82272; 82550; 83735; 84443; 84484; 85025; 86850; 86900; 86901; 87635; 93005; 96360; 96361; 99285

== ENCOUNTER → 2022-07-06 | Outpatient (CLI) | payer MEDICARE ==
--- NOTE | 2022-07-06 13:54 | MM ---
Reason for Exam: Follow-up at short interval from prior study. Last screening mammogram was performed 12 month(s) ago. Patient History: Menarche at age 14. Patient has no children. Postmenopausal. Breast cancer, age 57. Previous LCIS pathology result at age 52. Previous chemotherapy at age 57. Tamoxifen for 5 years from age 57 until age 62. 11/2003, Reduction on the Left side. Lumpectomy on the Right side. Core Biopsy on the Left side. 2002, Mastectomy on the Right side. 05/27/2001, Benign Stereotactic Core Biopsy on the left side. 04/12/1997, High risk Excisional Biopsy on the right side. Chemotherapy. 11/2003, Implant on the right side. Maternal aunt had breast cancer. Mother had breast cancer. Prior Study Comparison: 03/13/2019 Left Diagnostic Mammogram, [facility]. 04/26/2020 Left Diagnostic Mammogram, [facility]. 07/02/2021 Left Diagnostic Mammogram, [facility]. Tissue Density: Left: The breast tissue is heterogeneously dense. This may lower the sensitivity of mammography. Findings: Analyzed By CAD. Benign calculations persists. No evidence for mass or distortion. Overall Assessment: Benign, BI-RAD 2 Management: Diagnostic Mammogram of the left breast in 1 year. A clinical breast exam by your physician is recommended on an annual basis and results should be correlated with mammographic findings. This exam should not preclude additional follow-up of suspicious palpable abnormalities. Results were given to the patient verbally at the time of exam. Electronically signed and approved by: Jose Burgos M.D. Radiologis
== END | disposition home or self-care (01) ==
LOC: RADMAMWWP 12:51
PROVIDERS: ATTEND Internal Medicine Hematology & Oncology
DX: C50.911 Malignant neoplasm of unspecified site of right female breast (principal); I10 Essential (primary) hypertension; J45.901 Unspecified asthma with (acute) exacerbation; Z17.0 Estrogen receptor positive status [ER+]; Z78.0 Asymptomatic menopausal state; Z80.3 Family history of malignant neoplasm of breast
CPT/HCPCS: 77065; G0279; 77061

== ENCOUNTER → 2023-07-12 | Outpatient (CLI) | payer MEDICARE ==
--- NOTE | 2023-07-12 14:09 | MM ---
Reason for Exam: Hx of breast cancer, mastectomy. Last screening mammogram was performed 12 month(s) ago. Patient History: Menarche at age 14. Patient has no children. Postmenopausal. Breast cancer, age 57. Previous LCIS pathology result at age 52. Previous chemotherapy at age 57. Tamoxifen for 5 years from age 57 until age 62. 11/2003, Reduction on the Left side. Lumpectomy on the Right side. Core Biopsy on the Left side. 2002, Mastectomy on the Right side. 05/27/2001, Benign Stereotactic Core Biopsy on the left side. 04/12/1997, High risk Excisional Biopsy on the right side. Chemotherapy. 11/2003, Implant on the right side. Maternal aunt had breast cancer. Mother had breast cancer. Prior Study Comparison: 04/26/2020 Left Diagnostic Mammogram, [facility]. 07/02/2021 Left Diagnostic Mammogram, [facility]. 07/06/2022 Left MG 3D diag mammo w/cad , [facility]. Tissue Density: Left: The breasts are heterogeneously dense, which may obscure small masses. Findings: Analyzed By CAD. The pattern is stable. Scattered benign-appearing coarse and punctate calcifications are present. No significant interval changes are evident. No suspicious groups of microcalcifications, spiculated or lobular masses, architectural distortion or other secondary signs of malignancy are mammographically apparent. Overall Assessment: Benign, BI-RAD 2 Management: Screening Mammogram of the left breast in 1 year. A negative mammogram report should not preclude additional follow up of suspicious palpable abnormalities. Patient should continue monthly self breast exam. A clinical breast exam by your physician is recommended on an annual basis and results should be correlated with mammographic findings. Electronically signed and approved by: Daniel Elizabeth D.O. Radiologis
== END | disposition home or self-care (01) ==
LOC: RADMAMWWP 13:00
PROVIDERS: ATTEND Internal Medicine Hematology & Oncology
DX: Z12.31 Encounter for screening mammogram for malignant neoplasm of breast (principal); C50.911 Malignant neoplasm of unspecified site of right female breast; J45.901 Unspecified asthma with (acute) exacerbation; I10 Essential (primary) hypertension; Z78.0 Asymptomatic menopausal state; Z80.3 Family history of malignant neoplasm of breast
CPT/HCPCS: 77080; 77065; G0279; 77061

== ENCOUNTER → 2024-07-12 | Outpatient (CLI) | payer MEDICARE ==
--- NOTE | 2024-07-12 11:15 | MM ---
Reason for Exam: Follow-up at short interval from prior study. Last screening mammogram was performed 12 month(s) ago. Patient History: Menarche at age 14. Patient has no children. Postmenopausal. Breast cancer, age 57. Previous LCIS pathology result at age 52. Previous chemotherapy at age 57. Tamoxifen for 5 years from age 57 until age 62. 11/2003, Reduction on the Left side. Lumpectomy on the Right side. Core Biopsy on the Left side. 2002, Mastectomy on the Right side. 05/27/2001, Benign Stereotactic Core Biopsy on the left side. 04/12/1997, High risk Excisional Biopsy on the right side. Chemotherapy. 11/2003, Implant on the right side. Maternal aunt had breast cancer. Mother had breast cancer. Prior Study Comparison: 07/02/2021 Left Diagnostic Mammogram, [facility]. 07/06/2022 Left MG 3D diag mammo w/cad LT, [facility]. 07/12/2023 Left MG 3D diag mammo w/cad LT, [facility]. Tissue Density: Left: The breasts are heterogeneously dense, which may obscure small masses. Findings: Analyzed By CAD. Benign calcifications persists left breast. No evidence for new mass or distortion. Overall Assessment: Benign, BI-RAD 2 Management: Diagnostic Mammogram of the left breast in 1 year. . Results were given to the patient verbally at the time of exam. Patient should continue monthly self-breast exams. A clinical breast exam by your physician is recommended on an annual basis. This exam should not preclude additional follow-up of suspicious palpable abnormalities. Note on Kaci scores and lifetime risk: 1. A Kaci score greater than 3% is considered moderate risk. If this is the case, consider specialist referral to assess eligibility for a risk reducing agent. 2. If overall lifetime risk for the development of breast cancer is 20% or higher, the patient may qualify for future screening with alternating mammogram and breast MRI. [facility], , 07/12/2024 11:12 AM. Electronically signed and approved by: Jose Burgos M.D. Radiologis
== END | disposition home or self-care (01) ==
LOC: RADMAMWWP 10:45
PROVIDERS: ATTEND Internal Medicine Hematology & Oncology
DX: C50.911 Malignant neoplasm of unspecified site of right female breast (principal); J45.901 Unspecified asthma with (acute) exacerbation; I10 Essential (primary) hypertension; Z17.0 Estrogen receptor positive status [ER+]; R92.333 Mammographic heterogeneous density, bilateral breasts; Z80.3 Family history of malignant neoplasm of breast; Z85.3 Personal history of malignant neoplasm of breast; Z78.0 Asymptomatic menopausal state; Z98.82 Breast implant status
CPT/HCPCS: 77061; 77065

== ENCOUNTER 2024-08-05 08:03 | Emergency (ER) | payer MEDICARE ==
--- NOTE | 2024-08-05 08:22 | ED ---
Abdominal Pain HPI - General Chief Complaint: Abdominal Pain Stated Complaint: Back Pain Time Seen by Provider: 08/05/24 08:12 Source: patient, RN notes reviewed Mode of arrival: ambulatory Limitations: no limitations - History of Present Illness Initial Comments: 79-year-old female presents emergency department complaint of left-sided low back flank pain. Patient states started overnight. Patient states initially got better but worse again. Patient denies any bowel, bladder incontinence or tensional saddle anesthesias. Patient states she has no urinary symptoms no change in bowel habits no prior abdominal surgeries states nothing like makes pa in feel better or worse denies chest pain shortness of breath no headache or dizziness no other associated symptoms. - Related Data Home Medications Medication Instructions Recorded Confirmed Montelukast [Singulair] 10 mg PO DAILY 09/27/13 12/17/21 Cetirizine HCl [Zyrtec] 10 mg PO HS 09/28/13 12/17/21 Vit C/E/Zn/Coppr/Lutein/Zeaxan 1 tab PO BID 06/15/16 12/17/21 [Preservision Areds 2 Softgel] Azithromycin [Zithromax Z Pack] See Taper PO DIRECTED 12/17/21 12/17/21 Cholecalciferol [Vitamin D3 (125 125 mcg PO DAILY 12/17/21 12/17/21 Mcg = 5000 Iu)] Fluticasone Propion/Salmeterol 1 puff INHALATION RT-BID 12/17/21 12/17/21 [Wixela 500-50 Inhub] Latanoprost/Pf [Latanoprost 0.005% 1 drop BOTH EYES HS 12/17/21 12/17/21 Eye Drop] Multivit-Min/FA/Lycopen/Lutein 1 tab PO DAILY 12/17/21 12/17/21 [Centrum Silver Tablet] Previous Rx's Medication Instructions Recorded Meclizine [Antivert] 25 mg PO TID #20 tab 12/17/21 Ketorolac [Toradol] 10 mg PO Q8HR #15 tab 08/05/24 Ondansetron Odt [Zofran Odt] 4 mg PO Q8HR PRN #10 tab 08/05/24 Allergies Allergy/AdvReac Type Severity Reaction Status Date / Time ciprofloxacin [From Cipro] AdvReac Nausea Verified 08/05/24 08:09 ciprofloxacin HCl AdvReac Nausea Verified 08/05/24 08:09 [From Cipro] Review of Systems ROS Statement: Those systems with pertinent positive or pertinent negative responses have been documented in the HPI. ROS Other: All systems not noted in ROS Statement are negative. Past Medical History Past Medical History: Asthma, Cancer Additional Past Medical History / Comment(s): hx rt breast cancer History of Any Multi-Drug Resistant Organisms: None Reported Past Surgical History: Breast Surgery Additional Past Surgical History / Comment(s): Rt mastectomy. colonoscopy Past Anesthesia/Blood Transfusion Reactions: Previous Problems w/ Anesthesia Additional Past Anesthesia/Blood Transfusion Reaction / Comment(s): orthostatic HTN after last colonoscopy Past Psychological History: No Psychological Hx Reported Past Alcohol Use History: Rare General Exam Limitations: no limitations General appearance: alert, in no apparent distress Head exam: Present: atraumatic, normocephalic, normal inspection Eye exam: Present: normal appearance, PERRL, EOMI. Absent: scleral icterus, conjunctival injection, periorbital swelling ENT exam: Present: normal exam, mucous membranes moist Neck exam: Present: normal inspection, full ROM. Absent: tenderness, meningismus, lymphadenopathy Respiratory exam: Present: normal lung sounds bilaterally. Absent: respiratory distress, wheezes, rales, rhonchi, stridor Cardiovascular Exam: Present: regular rate, normal rhythm, normal heart sounds. Absent: systolic murmur, diastolic murmur, rubs, gallop, clicks GI/Abdominal exam: Present: soft, normal bowel sounds. Absent: distended, tenderness, guarding, rebound, rigid Back exam: Present: full ROM, tenderness, paraspinal tenderness. Absent: CVA tenderness (R), CVA tenderness (L), vertebral tenderness Neurological exam: Present: alert, oriented X3 Course Vital Signs 08/05/24 08:04 Temperature 97.3 F L Pulse Rate 76 Respiratory 18 Rate Blood Pressure 174/93 O2 Sat by Pulse 99 Oximetry Medical Decision Making - Medical Decision Making Was pt. sent in by a medical professional or institution (, PA, WIRE [employer]US[employer], urgent care, hospital, or prison...) When possible be specific @ -No Did you speak to anyone other than the patient for history (EMS, parent, family, police, friend...)? What history was obtained from this source @ -No Did you review nursing and triage notes (agree or disagree)? Why? @ -I reviewed and agree with nursing and triage notes Were old charts reviewed (outside hosp., previous admission, EMS record, old EKG, old radiological studies, urgent care reports/EKG's, prison records)? Report findings @ -No old charts were reviewed Differential Diagnosis (chest pain, altered mental status, abdominal pain women, abdominal pain men, vaginal bleeding, weakness, fever, dyspnea, syncope, headache, dizziness, GI bleed, back pain, seizure, CVA, palpatations, mental health, musculoskeletal)? @Differential Abdominal Pain Women: Appendicitis, Cholecystitis, diverticulosis, ischemic bowel, pancreatitis, hepatitis, UTI, gastroenteritis, AAA, incarcerated hernia, bowel obstruction, constipation, inflammatory bowel, hepatitis, peptic ulcer disease, splenic infarction, perforated viscus, vulvitis, ovarian torsion, PID, kidney stone, placenta abruption, this is not meant to be an all-inclusive list EKG interpreted by me (3pts min.). @ -None X-rays interpreted by me (1pt min.). @ -None done CT interpreted by me (1pt min.). @ -CT pelvis showing evidence of a 3 to 4 mm ureteral calculus U/S interpreted by me (1pt. min.). @ -None done What testing was considered but not performed or refused? (CT, X-rays, U/S, labs)? Why? @ -None What meds were considered but not given or refused? Why? @ -None Did you discuss the management of the patient with other professionals (professionals i.e. DrPratik, PA, WIRE BRUSHER, lab, RT, psych nurse, rn social services, lawyer criminal, teacher, air defence officer, corrections caseworker)? Give summary @ -No Was smoking cessation discussed for >3mins.? @ -No Was critical care preformed (if so, how long)? @ -No Were there social determinants of health that impacted care today? How? (Homelessness, low income, unemployed, alcoholism, drug addiction, transportation, low edu. Level, literacy, decrease access to med. care, penitentiary, rehab)? @ -No Was there de-escalation of care discussed even if they declined (Discuss DNR or withdrawal of care, Hospice)? DNR status @ -No What co-morbidities impacted this encounter? (DM, HTN, Smoking, COPD, CAD, C ancer, CVA, ARF, Chemo, Hep., AIDS, mental health diagnosis, sleep apnea, morbid obesity)? @ -None Was patient admitted / discharged? Hospital course, mention meds given and route, prescriptions, significant lab abnormalities, going to OR and other pertinent info. @ -[Patient's pain is greatly improved after Toradol. Patient does have evidence of fever calculus in hematuria without evidence of infection. Patient is discharged in stable condition return parameters preston. Undiagnosed new problem with uncertain prognosis? @ -No Drug Therapy requiring intensive monitoring for toxicity (Heparin, Nitro, Insulin, Cardizem)? @ -No Were any procedures done? @ -No Diagnosis/symptom? @ -Ureteral calculus Acute, or Chronic, or Acute on Chronic? @ -Acute Uncomplicated (without systemic symptoms) or Complicated (systemic symptoms)? @ -Complicated Side effects of treatment? @ -No Exacerbation, Progression, or Severe Exacerbation? @ -No Poses a threat to life or bodily function? How? (Chest pain, [place], [place], pneumonia, PE, COPD, DKA, ARF, appy, cholecystitis, CVA, Diverticulitis, Homicidal, Suicidal, threat to staff... and all critical care pts) @ -No - Lab Data Result diagrams: 08/05/24 08:36 08/05/24 08:36 Lab Results 08/05/24 08/05/24 08/05/24 Range/Units 08:36 08:36 08:36 WBC 12.85 H (4.50-10.00) 10*3/uL RBC 4.55 (4.10-5.20) 10*6/uL Hgb 14.2 (12.0-15.0) g/dL Hct 41.5 (37.2-46.3) % MCV 91.2 (80.0-97.0) fL MCH 31.2 (27.0-32.0) pg MCHC 34.2 (32.0-37.0) g/dL Plt Count 342 (140-440) 10*3/uL MPV 10.6 (9.5-12.2) fL Immature Gran % (Auto) 0.3 % Neutrophils % 75.8 % Lymphocytes % 15.3 % Monocytes % 7.9 % Eosinophils % 0.2 % Basophils % 0.5 % Immature Gran # 0.04 (0.00-0.04) 10*3/uL Neutrophils # 9.74 H (1.80-7.70) 10*3/uL Lymphocytes # 1.96 (0.90-5.00) 10*3/uL Monocytes # 1.02 H (0.20-1.00) 10*3/uL Eosinophils # 0.03 L (0.04-0.35) 10*3/uL Basophils # 0.06 (0.00-0.10) 10*3/uL Sodium 139 (137-145) mmol/L Potassium 4.5 (3.5-5.1) mmol/L Chloride 104 (98-107) mmol/L Carbon Dioxide 28 (22-30) mmol/L Anion Gap 7 mmol/L BUN 17 (7-17) mg/dL Creatinine 0.65 (0.52-1.04) mg/dL Est GFR (CKD-EPI)AfAm >90 (>60 ml/min/1.73 sqM) Est GFR (CKD-EPI)NonAf 86 (>60 ml/min/1.73 sqM) Glucose 138 H (74-99) mg/dL Plasma Lactic Acid Kenneth (0.7-2.0) mmol/L Calcium 12.8 H (8.4-10.2) mg/dL Total Bilirubin 0.6 (0.2-1.3) mg/dL AST 39 H (14-36) U/L ALT 44 H (4-34) U/L Alkaline Phosphatase 68 (38-126) U/L Total Protein 8.0 (6.3-8.2) g/dL Albumin 4.7 (3.5-5.0) g/dL Lipase 30 (23-300) U/L Urine Color Colorless Urine Appearance Cloudy H (Clear) Urine pH 8.0 (5.0-8.0) Ur Specific [place] 1.009 (1.001-1.035) Urine Protein Negative (Negative) Urine Glucose (UA) Trace H (Negative) Urine Ketones Negative (Negative) Urine Blood Large H (Negative) Urine Nitrite Negative (Negative) Urine Bilirubin Negative (Negative) Urine Urobilinogen <2.0 (<2.0) mg/dL Ur Leukocyte Esterase Negative (Negative) Urine RBC >182 H (0-5) /hpf Urine WBC 1 (0-5) /hpf Ur Squamous Epith Cells <1 (0-4) /hpf Urine Bacteria Rare H (None) /hpf 08/05/24 Range/Units 08:36 WBC (4.50-10.00) 10*3/uL RBC (4.10-5.20) 10*6/uL Hgb (12.0-15.0) g/dL Hct (37.2-46.3) % MCV (80.0-97.0) fL MCH (27.0-32.0) pg MCHC (32.0-37.0) g/dL Plt Count (140-440) 10*3/uL MPV (9.5-12.2) fL Immature Gran % (Auto) % Neutrophils % % Lymphocytes % % Monocytes % % Eosinophils % % Basophils % % Immature Gran # (0.00-0.04) 10*3/uL Neutrophils # (1.80-7.70) 10*3/uL Lymphocytes # (0.90-5.00) 10*3/uL Monocytes # (0.20-1.00) 10*3/uL Eosinophils # (0.04-0.35) 10*3/uL Basophils # (0.00-0.10) 10*3/uL Sodium (137-145) mmol/L Potassium (3.5-5.1) mmol/L Chloride (98-107) mmol/L Carbon Dioxide (22-30) mmol/L Anion Gap mmol/L BUN (7-17) mg/dL Creatinine (0.52-1.04) mg/dL Est GFR (CKD-EPI)AfAm (>60 ml/min/1.73 sqM) Est GFR (CKD-EPI)NonAf (>60 ml/min/1.73 sqM) Glucose (74-99) mg/dL Plasma Lactic Acid Kenneth 2.0 (0.7-2.0) mmol/L Calcium (8.4-10.2) mg/dL Total Bilirubin (0.2-1.3) mg/dL AST (14-36) U/L ALT (4-34) U/L Alkaline Phosphatase (38-126) U/L Total Protein (6.3-8.2) g/dL Albumin (3.5-5.0) g/dL Lipase (23-300) U/L Urine Color Urine Appearance (Clear) Urine pH (5.0-8.0) Ur Specific [place] (1.001-1.035) Urine Protein (Negative) Urine Glucose (UA) (Negative) Urine Ketones (Negative) Urine Blood (Negative) Urine Nitrite (Negative) Urine Bilirubin (Negative) Urine Urobilinogen (<2.0) mg/dL Ur Leukocyte Esterase (Negative) Urine RBC (0-5) /hpf Urine WBC (0-5) /hpf Ur Squamous Epith Cells (0-4) /hpf Urine Bacteria (None) /hpf Disposition Clinical Impression: Ureteral calculus, left Disposition: HOME SELF-CARE Condition: Stable Instructions (If sedation given, give patient instructions): Kidney Stones (ED) Additional Instructions: Please return to the Emergency Department if symptoms worsen or any other concerns. Prescriptions: Ketorolac [Toradol] 10 mg PO Q8HR #15 tab Ondansetron Odt [Zofran Odt] 4 mg PO Q8HR PRN #10 tab PRN Reason: Nausea Is patient prescribed a controlled substance at d/c from ED?: No Referrals: Silvia Dennis MD [Primary Care Provider] - 1-2 days Time of Disposition: 09:44
[2024-08-05] MEDS: KETOROLAC 15 MG/ML 1 ML VIAL IVP STA (08:31)
[2024-08-05] MEDS: SODIUM CHLORIDE 0.9% 1,000 ML IV ONE (08:31)
[2024-08-05 08:44] LABS: Basophils # (A) 0.06 10*3/uL (0.00-0.10); Basophils % (A) 0.5 %; Eosinophils # (A) 0.03 10*3/uL (0.04-0.35); Eosinophils % (A) 0.2 %; HCT 41.5 % (37.2-46.3); HGB 14.2 g/dL (12.0-15.0); Lymphocytes # (A) 1.96 10*3/uL (0.90-5.00); Lymphocytes % (A) 15.3 %; MCH 31.2 pg (27.0-32.0); MCHC 34.2 g/dL (32.0-37.0); MCV 91.2 fL (80.0-97.0); Mean Platelet Volume 10.6 fL (9.5-12.2); Monocytes # (A) 1.02 10*3/uL (0.20-1.00); Monocytes % (A) 7.9 %; Neutrophils # (A) 9.74 10*3/uL (1.80-7.70); Neutrophils % (A) 75.8 %; Platelet Count 342 10*3/uL (140-440); RBC 4.55 10*6/uL (4.10-5.20); RDW 13.6 % (11.5-14.5); WBC 12.85 10*3/uL (4.50-10.00)
[2024-08-05 08:56] LABS: ALT 44 U/L (4-34); AST 39 U/L (14-36); African American GFR (CKD) >90 (>60 ml/min/1.73 sqM); Albumin 4.7 g/dL (3.5-5.0); Alkaline Phosphatase 68 U/L (38-126); Anion Gap 7 mmol/L; Blood Urea Nitrogen 17 mg/dL (7-17); Calcium 12.8 mg/dL (8.4-10.2); Carbon Dioxide 28 mmol/L (22-30); Chloride 104 mmol/L (98-107); Glucose 138 mg/dL (74-99); Lipase 30 U/L (23-300); Non-African American GFR(CKD) 86 (>60 ml/min/1.73 sqM); Potassium 4.5 mmol/L (3.5-5.1); Sodium 139 mmol/L (137-145); Total Bilirubin 0.6 mg/dL (0.2-1.3)
[2024-08-05 09:10] LABS: Appearance,Urine Cloudy (Clear); Bacteria,Urine Rare /hpf; Bilirubin,Urine Negative (Negative); Blood,Urine Large (Negative); Color,Urine Colorless; Glucose,Urine (UA) Trace (Negative); Ketones,Urine Negative (Negative); Leukocyte Esterase,Urine Negative (Negative); Nitrite,Urine Negative (Negative); Protein,Urine Negative (Negative); RBC,Urine >182 /hpf (0-5); Specific Gravity,Urine 1.009 (1.001-1.035); Squamous Epithelial Cell,Urine <1 /hpf (0-4); Urobilinogen,Urine <2.0 mg/dL (<2.0); WBC,Urine 1 /hpf (0-5)
--- NOTE | 2024-08-05 09:38 | CT ---
EXAMINATION TYPE: CT abdomen pelvis w con DATE OF EXAM: 08/05/2024 COMPARISON: NONE CLINICAL INDICATION: Female, 79 years old with history of left sided pain, LEFT SIDED ABDOMINAL PAIN. , TECHNIQUE: CT scan of the abdomen and pelvis is performed with IV Contrast, patient injected with 100 ml mL of I sovue 300., (none if empty) Oral contrast used: without Oral Contrast (none if empty) CT DLP: 512.2 mGycm, Automated exposure control for dose reduction was used. FINDINGS: LUNG BASES: Right breast prosthesis is partially imaged. LIVER/GB: No significant abnormality is appreciated. PANCREAS: No significant abnormality is seen. SPLEEN: No significant abnormality is seen. ADRENALS: No significant abnormality is seen. KIDNEYS: Symmetric corticomedullary uptake and excretion. A few subcentimeter low dense lesions in th e right kidney are seen. There is 3 to 4 mm calculus at left UVJ axial image 73 causing mild to moder ate left-sided hydronephrosis. There is nonspecific moderate ill-defined fluid surrounding proximal l eft ureter. BOWEL: Low-lying cecum into the right pelvis is seen. No abnormal small or large bowel dilatation. A few distal colonic diverticula. UTERUS/ADNEXA: Uterus is surgically absent. LYMPH NODES: No greater than 1cm abdominal or pelvic lymph nodes are appreciated. OSSEOUS STRUCTURES: Slight levoconvex scoliotic curvature. Moderate to severe multilevel disc space n arrowing and multilevel vacuum disc phenomenon. [id number] multilevel spurring. OTHER: No significant additional abnormality is seen. IMPRESSION: There is 3 to 4 mm calculus at left UVJ causing [id number] left-sided hydronephrosi s but no delayed left renal excretion. [facility], , 08/05/2024 9:36 AM
[2024-08-05] MEDS: ACET/COD 300 MG/30 MG STARTER PACK 6 TAB BTL PO STA (09:49)
[2024-08-05 09:54] VITALS: BP 153/98; PULSE 79; RESP 16; TEMP 97.6
== END 2024-08-05 09:54 | disposition home or self-care (01) ==
LOC: EC 08:03
DX: N13.2 Hydronephrosis with renal and ureteral calculous obstruction (principal); Z88.1 Allergy status to other antibiotic agents
CPT/HCPCS: 36415; 80053; 83605; 83690; 85025; 81001; 74177; 99284; 96374; 96361; J1885; Q9967